=== PATIENT | male | born 2000 | race Caucasian/White ===

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

== ENCOUNTER 2018-12-15 19:57 | Emergency (ER) | payer OTHER ==
[2018-12-15] MEDS: MECLIZINE 12.5 MG TAB PO (21:30)
== END 2018-12-15 21:49 | disposition home or self-care (01) ==
LOC: FTE 19:57
DX: H81.10 Benign paroxysmal vertigo, unspecified ear (principal); J01.90 Acute sinusitis, unspecified
CPT/HCPCS: 99283